=== PATIENT | male | born 1965 | race Caucasian/White ===

== ENCOUNTER 2024-03-17 10:41 | Day surgery (SDC) | payer OTHER ==
[~2024-03-17] VITALS: Ht 177.8 cm; Wt 122.7 kg
[~2024-03-17 10:41] MED LIST: CEFAZOLIN SODIUM 3 GM/30 ML SYR IV SCH; DICLOFENAC POTA50 MG PO; IBLOOD GLUCOSE TEST STRIP 1 EA TEST VI PRN; LACTATED RINGER'S 1,000 ML IV SCH; LIDOCAINE HCL 1% 5 ML SDV INJ ONE; LOSARTAN-HCTZ1 EACH PO; MIDAZOLAM HCL 5 MG/5 ML VIAL IV PRN; OMEPRAZOLE20 M1 PO; TRAMADOL HCL50 MG PO; fentaNYL citrate 100 MCG/2 ML VIAL IV PRN
[2024-03-17 10:59] VITALS: BP 146/64
--- NOTE | 2024-03-17 12:17 | NUR ---
1215 PT USED CALL LIGHT TO ALERT NURSE OF QUESTION. PT WAS WONDERING 'HOW MUCH LONGER IS IT GOING TO BE? I'VE BEEN HERE FOR AN HOUR." UPDATED PT ON WAIT TIME. PT SEEMS UNDERSTANDING AT THIS TIME.
[2024-03-17] MEDS ORDERED: fentaNYL citrate 100 MCG/2 ML VIAL ONE (12:35)
[2024-03-17] MEDS ORDERED: MIDAZOLAM HCL 5 MG/5 ML VIAL ONE (12:35)
[2024-03-17 14:01] VITALS: BP 122/84
--- NOTE | 2024-03-17 14:56 | NUR ---
03/17/24 1456 Alfredito,Marlin 1324 PT ARRIVED TO PACU ON RA AND AWAKE TALKING TO RN. WAYNE. 1333 MD AT BEDSIDE TALKING TO PT. PT ROLLED TO LEFT SIDE AND IS ENCOURAGED TO PASS GAS NEEDED. 1356 PT ASLEEP OFF AND ON, PSSING LARGE AMOUNTS OF GAS. PT WAKES AND ROLLS TO BACK, HOB INCREASED AND PT SIPPING WATER AND DENIES CONCERNS. 1357 DC INSTRUCTIONS GIVEN AND PT DENIES CONCERNS. 1410 PT DRESSED HIMSELF AND DC VIA WC WITH ALL BELONGINGS AND DC PAPERWORK.
--- NOTE | 2024-03-18 14:40 | OR ---
[facility] [address], [place] [address] Signed DATE OF OPERATION: 03/17/2024 SURGEON: Rigoberto Loyd MD PREOPERATIVE DIAGNOSIS: Colon screening. POSTOPERATIVE DIAGNOSES: 1. Sigmoid and left-sided diverticulosis. 2. Small polyp at 20 cm (excised). PROCEDURE: Total colonoscopy to cecum with cold morcellation polypectomy x1. ANESTHESIA: Intravenous sedation, fentanyl 100 mcg and Versed 8 mg. INDICATION: This 58-year-old white man is a patient of AUGUSTINA Bentley in [place], [place]. He has never had colon evaluation in the past. He is here for screening colonoscopy. He understands the risk of bleeding, infection, and perforation. He has no symptoms of bleeding, diarrhea or constipation and no family history of colon cancer. He understands the risk of colonoscopy and wished to proceed. FINDINGS: A number of diverticula were noted of the sigmoid and left colon. A small polyp of the sigmoid at 20 cm was excised as well. The remaining colon was normal. PROCEDURE IN DETAIL: The patient was brought to the endoscopy suite and placed in lateral decubitus position, given intravenous sedation to the point of slurred speech and nystagmus. Digital rectal examination was normal. An Olympus video colonoscope was passed in the rectum and manipulated throughout the colon ultimately intubating the cecum itself. The ileocecal valve and appendiceal orifice were normal. The scope was withdrawn from that point and examination throughout showed no sign of abnormality into the left colon where diverticula were once again noted. In the sigmoid at approximately 20 cm, a small polyp was noted, this was excised with cold morcellation technique. Very probably this polyp was hyperplastic. The scope was further withdrawn. Retroflexed view of the rectum showed no sign of abnormality. Electronically Signed By: RIGOBERTO LOYD MD 03/18/24 1440 PATIENT NAME: VICKY REN OPERATIVE REPORT DATE OF : 61 REPORT #: [id number] PHYSICIAN: RIGOBERTO LOYD MD PCP: MARIKA MARINELLI REPORT IS CONFIDENTIAL AND NOT TO BE RELEASED WITHOUT AUTHORIZATION [facility] [address], [place] [address] Signed Scope was removed. The patient was taken to the recovery room in good condition. CONCLUDING DIAGNOSIS: Diverticulosis and small polyp x1. PLAN: Recommend high-fiber diet as well as repeat colonoscopy in 5 years, sooner if symptoms should develop. He will return to the ongoing care of Marika Marinelli. MD DEANA Wilson/MODL /[id number] cc: AUGUSTINA Bentley Copies: ~ Electronically Signed By: RIGOBERTO LOYD MD 03/18/24 1440 PATIENT NAME: VICKY REN OPERATIVE REPORT DATE OF : 61 REPORT #: [id number] PHYSICIAN: RIGOBERTO LOYD MD PCP: MARIKA MARINELLI REPORT IS CONFIDENTIAL AND NOT TO BE RELEASED WITHOUT AUTHORIZATION
--- NOTE | 2024-03-19 14:52 | PATH ---
[facility] [address], [place] [address] Signed SPECIMEN(S): A SIGMOID POLYP AT 20 CM SPECIMEN SOURCE: A. SIGMOID POLYP AT 20 CM CLINICAL HISTORY: Colon screening, polyp, diverticulosis FINAL PATHOLOGIC DIAGNOSIS: Sigmoid polyp at 20 cm: - Hyperplastic polyp (multiple fragments). JVR:clv MICROSCOPIC EXAMINATION: Histologic sections of all submitted blocks are examined by light microscopy. These findings, together with the gross examination, support the pathologic diagnosis. GROSS DESCRIPTION: The specimen, labeled and designated "Christiano sigmoid colon polyp at 20 cm," is received in formalin and consists of six varela soft tissue fragments, ranging from 0.1-0.2 cm. Entirely submitted in (A1). JS (under the direct supervision of a pathologist) The Gross Description was prepared using a voice recognition system. The report was reviewed for accuracy; however, sound-alike word errors, addition and/or deletions may occur. If there is any question about this report, please contact Client Services. PERFORMING LABORATORY: Technical component was performed by [facility], [address] [place] [id number] (CLIA# [id number]). Professional interpretation was performed by [facility], [address] [place] [id number] (CLIA#: [id number]). Diagnostician: Raleigh Dee MD Pathologist Electronically Signed 03/19/2024 Copies: PATIENT NAME: VICKY REN PATHOLOGY DATE OF : 61 REPORT #: [id number] PHYSICIAN: [facility] PATHOLOG[facility] PCP: MARIKA MARINELLI REPORT IS CONFIDENTIAL AND NOT TO BE RELEASED WITHOUT AUTHORIZATION [address] [address] Signed ~ PATIENT NAME: VICKY REN PATHOLOGY DATE OF : 61 REPORT #: [id number] PHYSICIAN: FRANC[facility] PATHOLOGY PCP: MARIKA MARINELLI REPORT IS CONFIDENTIAL AND NOT TO BE RELEASED WITHOUT AUTHORIZATION
== END 2024-03-17 14:10 | disposition home or self-care (01) ==
LOC: OPS 10:41 → DS 10:45 → EDSEX 14:00 → OPS 14:00
PROVIDERS: ATTEND Surgery
PROC: 0DBN8ZX Excision of Sigmoid Colon, Via Natural or Artificial Opening Endoscopic, Diagnostic (ICD-10-PCS; principal; 2024-03-17 12:15)
DX: Z12.11 Encounter for screening for malignant neoplasm of colon (principal); K63.5 Polyp of colon; K57.30 Diverticulosis of large intestine without perforation or abscess without bleeding; E66.01 Morbid (severe) obesity due to excess calories; I10 Essential (primary) hypertension; Z68.38 Body mass index [BMI] 38.0-38.9, adult
CPT/HCPCS: 88305; 99153; G0500; J0690; J2250; J3010; J7121